=== PATIENT | female | born 1940 | race Caucasian/White ===

== ENCOUNTER → 2018-04-26 | Outpatient (CLI) | payer OTHER ==
[~2018-04-26] MED LIST: ASMANEX220 MC2 INH; ASPIR-TRIN325 MG PO; FORTICAL1 SPRAY NASAL; LISINOPRIL10 MG PO; MIACALCIN3.7 ML INH; NABUMETONE 750750 M1 PO; OXYCODONE HCL 55 MG PO; TRANSDERM-SCO1 PATC1 TD; VENTOLIN HFA 1818 GM INH; XARELTO10 MG PO
== END ==
LOC: M.RAD 12:10
DX: Z12.31 Encounter for screening mammogram for malignant neoplasm of breast (principal)

== ENCOUNTER → 2018-05-16 | Outpatient (CLI) | payer OTHER | LOC: M.MRI 08:00 | DX: M47.27 Other spondylosis with radiculopathy, lumbosacral region (principal); M51.17 Intervertebral disc disorders with radiculopathy, lumbosacral region; Z96.651 Presence of right artificial knee joint ==

== ENCOUNTER → 2020-04-14 | Outpatient (CLI) | payer OTHER | LOC: M.RAD 10:31 | PROVIDERS: ATTEND Family Medicine | DX: Z12.31 Encounter for screening mammogram for malignant neoplasm of breast (principal) ==

== ENCOUNTER → 2020-11-10 | Outpatient (CLI) | payer OTHER | LOC: M.RAD 13:22 | PROVIDERS: ATTEND Family Medicine | DX: Z78.0 Asymptomatic menopausal state (principal); M85.88 Other specified disorders of bone density and structure, other site ==